=== PATIENT | female | born 1955 | race Asian ===

== ENCOUNTER → 2016-11-09 | Outpatient (CLI) | payer BC ==
[~2016-11-09] MED LIST: ALBU18HF INHALATION; AZIT250T94 PO; MULT-552 PO
[2016-11-09 12:21] LABS: BASOPHILS % 0.4 % (0.0-2.0); EOSINOPHILS # 0.3 10^3/ul (0.0-0.5); EOSINOPHILS % 4.4 % (0.0-7.0); HEMATOCRIT 41.1 % (37.0-47.0); HEMOGLOBIN 13.5 g/dl (12.0-16.0); LYMPHOCYTES # 2.1 10^3/ul (0.8-2.9); LYMPHOCYTES % 32.1 % (15.0-51.0); MEAN CORPUSCULAR HGB CONC 32.9 g/dl (32.0-37.0); MEAN CORPUSCULAR VOLUME 97.1 fl (82.0-101.0); MEAN PLATELET VOLUME 7.2 fl (7.4-10.4); MONOCYTE # 0.6 10^3/ul (0.3-0.9); MONOCYTES % 8.5 % (0.0-11.0); NEUTROPHIL # 3.5 10^3/ul (1.6-7.5); NEUTROPHILS % 54.6 % (39.0-77.0); PLATELET COUNT 257 10^3/UL (140-440); RED BLOOD COUNT 4.23 10^6/ul (4.20-5.40); RED CELL DISTRIBUTION WIDTH 12.7 % (11.5-14.5); UNCORRECTED WBC 6.5 10^3/ul (4.8-10.8); WHITE BLOOD COUNT 6.5 10^3/ul (4.8-10.8)
[2016-11-09 12:22] LABS: ALBUMIN 4.2 g/dl (3.3-4.9)
[2016-11-09 12:23] LABS: POTASSIUM 3.9 mmol/L (3.5-5.1)
[2016-11-09 12:25] LABS: BILIRUBIN,INDIRECT 0.3 mg/dl (0-1.1); BILIRUBIN,TOTAL 0.3 mg/dl (0.2-1.3); CONDITION 1; CREATININE 0.66 mg/dl (0.44-1.00); TOTAL PROTEIN 8.4 g/dl (6.1-8.1)
[2016-11-09 12:26] LABS: CALCIUM 9.5 mg/dl (8.4-10.2)
== END | disposition home or self-care (01) ==
LOC: LAB 11:37
PROVIDERS: ATTEND Internal Medicine Hematology & Oncology
DX: C50.911 Malignant neoplasm of unspecified site of right female breast (principal)
CPT/HCPCS: 80053; 85025; 86300

== ENCOUNTER → 2017-04-12 | Outpatient (CLI) | payer BC ==
[2017-04-12 10:58] LABS: ADD SCAN DIFF NO
[2017-04-12 11:04] LABS: BASOPHIL # 0.1 10^3/ul (0.0-0.1); BASOPHILS % 0.9 % (0.0-2.0); EOSINOPHILS # 0.2 10^3/ul (0.0-0.5); EOSINOPHILS % 3.6 % (0.0-7.0); HEMATOCRIT 41.1 % (37.0-47.0); HEMOGLOBIN 13.4 g/dl (12.0-16.0); LYMPHOCYTES # 2.3 10^3/ul (0.8-2.9); LYMPHOCYTES % 39.3 % (15.0-51.0); MEAN CORPUSCULAR HEMOGLOBIN 32.4 pg (29.0-33.0); MEAN CORPUSCULAR HGB CONC 32.6 g/dl (32.0-37.0); MEAN CORPUSCULAR VOLUME 99.3 fl (82.0-101.0); MEAN PLATELET VOLUME 8.9 fl (7.4-10.4); MONOCYTE # 0.4 10^3/ul (0.3-0.9); MONOCYTES % 7.1 % (0.0-11.0); NEUTROPHIL # 2.8 10^3/ul (1.6-7.5); NEUTROPHILS % 48.9 % (39.0-77.0); PLATELET COUNT 228 10^3/UL (140-415); RED BLOOD COUNT 4.14 10^6/ul (4.20-5.40); RED CELL DISTRIBUTION WIDTH 12.1 % (11.5-14.5); WHITE BLOOD COUNT 5.8 10^3/ul (4.8-10.8)
[2017-04-12 11:27] LABS: ALBUMIN 4.9 g/dl (3.3-4.9); ALBUMIN/GLOBULIN RATIO 1.25; BILIRUBIN,INDIRECT 0.3 mg/dl (0-1.1); BILIRUBIN,TOTAL 0.3 mg/dl (0.2-1.3); CALCIUM 10.2 mg/dl (8.4-10.2); CREATININE 0.84 mg/dl (0.44-1.00); POTASSIUM 4.2 mmol/L (3.5-5.1); TOTAL PROTEIN 8.8 g/dl (6.1-8.1)
== END | disposition home or self-care (01) ==
LOC: LAB 10:11
PROVIDERS: ATTEND Internal Medicine Hematology & Oncology
DX: C50.919 Malignant neoplasm of unspecified site of unspecified female breast (principal)
CPT/HCPCS: 80053; 85025; 86300

== ENCOUNTER → 2017-04-18 | Outpatient (CLI) | payer BC ==
[~2017-04-18] MED LIST changes: +IOHEXOL 300MG/ML 150 ML BTL ONE; +SOD CHLORIDE 0.9% 100 ML ONE
--- NOTE | 2017-04-18 14:02 | RADRPT ---
PROCEDURE: CT Chest, Abdomen and Pelvis with contrast. CLINICAL INDICATION: History of breast cancer. Cough. Abdominal and pelvic pain. TECHNIQUE: CT scan of the chest, abdomen, and pelvis with intravenous contrast was performed with helical axial sections. The patient was scanned during intravenous injection of 100 ml of Omnipaque -300 intravenous contrast. 2-D coronal reformatted images were obtained from the axial source image s. Total exam DLP is 923.70 mGy-cm. CTDIvol is 13.37 MGy. One or more of the following dose reduc tion techniques were used: Automated exposure control, adjustment of the mA and/or kV according to p atient size, use of iterative reconstruction technique. COMPARISON: CT scan of the chest, abdomen, and pelvis dated 06/28/2016. FINDINGS: CT chest: There is scarring bilaterally in the lung apices with right worse than left, unchanged from the prio r study. The lungs are otherwise clear with no other airspace or interstitial disease. There is no pulmonary nodule or mass lesion. The mediastinum and luke are normal with no lymphadenopathy or mass. There is no axillary, supraclav icular, or internal mammary lymphadenopathy. There is right breast skin thickening. The thoracic aorta is not dilated. The heart size is normal. There is no pleural effusion or pericardial effusion. CT abdomen: The liver is normal in size and attenuation. There is no focal hepatic lesion. The gallbladder and bile ducts are normal. The spleen is normal in size. There is no focal splenic lesion. The pancreas is normal with no mass or evidence of pancreatitis. Both adrenals are normal with no enlargement or mass. Both kidneys demonstrate normal contrast enhancement. There is no renal mass or hydronephrosis. The abdominal aorta is not dilated. There is no retroperitoneal lymphadenopathy or mass. The bowel and mesentery are normal. There is no free fluid or free gas. CT pelvis: There is no pelvic lymphadenopathy or mass. The bladder and distal ureters are normal. The periappendiceal region is unremarkable with no evidence of appendicitis. The bowel and mesentery are normal. There is no free fluid or free gas. Osseous structures: There is no fracture. There is no lytic or blastic lesion. There are mild degenerative changes of the lower lumbar spine. IMPRESSION: 1. Scarring in the lung apices with right worse than left, unchanged. 2. Right breast thickening. 3. Mild degenerative changes of the lower lumbar spine. 4. Otherwise unremarkable study. RPTAT: QQ .Kingsley Salcido MD, Date Time Electronically viewed and signed by .Kingsley Salcido MD, on 04/18/2017 14:02 .R/
== END | disposition home or self-care (01) ==
LOC: C/S 12:09
PROVIDERS: ATTEND Internal Medicine Hematology & Oncology
DX: J98.4 Other disorders of lung (principal); N64.59 Other signs and symptoms in breast; M51.36 Other intervertebral disc degeneration, lumbar region; Z85.3 Personal history of malignant neoplasm of breast
CPT/HCPCS: 71260; 74177; Q9967